=== PATIENT | female | born 1995 | race Caucasian/White ===

== ENCOUNTER → 2021-11-17 08:47 | Outpatient (CLI) | payer OTHER, SELFPAY ==
--- NOTE | ~2021-11-17 | US_ITS ---
EXAMINATION: US breast LT limited HISTORY: Palpable lump at the 12:00 location of the left breast TECHNIQUE: Limited left breast ultrasound is performed. FINDINGS: There is a 3.1 x 1.4 cm oval, circumscribed, parallel, hypoechoic mass with no posterior fe atures or internal vascularity at the 12:00 location 3 cm from the nipple. An adjacent 0.9 x 0.6 cm m ass with similar sonographic features is noted. 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 Continued clinical examination and follow-up left breast u ltrasound in six months are recommended. BI-RADS category 3, probably benign findings. Reviewed, dictated and finalized at location A. 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 Continued clinical examination and f ollow-up left breast ultrasound in six months are recommended. BI-RADS category 3, probably benign findings.
== END ==
PROVIDERS: PCP Nurse Practitioner Family; Visit Provider Nurse Practitioner Family
DX: N63.20 Unspecified lump in the left breast, unspecified quadrant (principal); R92.8 Other abnormal and inconclusive findings on diagnostic imaging of breast
CPT/HCPCS: 76642

== ENCOUNTER → 2022-05-28 08:23 | Outpatient (CLI) | payer OTHER, SELFPAY ==
--- NOTE | ~2022-05-28 | US_ITS ---
US breast LT limited DATE: 05/28/2022 08:49 INDICATION: Probable benign left breast fibroadenomas, six-month follow-up TECHNIQUE: Real-time and color flow imaging targeted at 12:00 3 cm from nipple COMPARISON: 11/17/2021 Limited left breast ultrasound examination FINDINGS: There is a parallel circumscribed hypoechoic solid lesion measuring approximately 1.4 x 2 x 3 cm dimension, with through transmission, likely a benign fibroadenoma, stable since 11/17/2021. No o ther mass is identified. IMPRESSION: BI-RADS Category 2: Benign Reviewed, dictated and finalized at [facility]. Reviewed, dictated and finalized at location A. IMPRESSION: BI-RADS Category 2: Benign
== END ==
PROVIDERS: PCP Nurse Practitioner Family; Visit Provider Family Medicine
DX: N63.20 Unspecified lump in the left breast, unspecified quadrant (principal); R92.8 Other abnormal and inconclusive findings on diagnostic imaging of breast
CPT/HCPCS: 76642